=== PATIENT | female | born 1975 | race Caucasian/White ===

== ENCOUNTER → 2018-11-19 | Outpatient (CLI) | payer BC ==
[2004-04-04 15:21] VITALS: PULSE 97; TEMP 97.7
== END ==
LOC: MC.RAD 16:27
DX: Z12.31 Encounter for screening mammogram for malignant neoplasm of breast (principal); N63.10 Unspecified lump in the right breast, unspecified quadrant

== ENCOUNTER → 2018-11-28 | Outpatient (CLI) | payer BC ==
[2004-04-04 15:21] VITALS: PULSE 97; TEMP 97.7
== END ==
LOC: MC.RAD 13:59
DX: N63.12 Unspecified lump in the right breast, upper inner quadrant (principal)